=== PATIENT | female | born 1955 | race Caucasian/White ===

== ENCOUNTER 2019-04-23 13:09 | Emergency (ER) | payer OTHER ==
[2019-04-23 13:32] VITALS: BMI 21.5
[2019-04-23] MEDS ORDERED: SODIUM CHLORIDE 1,000 ML IV STA ×2 (13:38→16:29)
[2019-04-23] MEDS ORDERED: ACETAMINOPHEN 1000 MG/100 ML VIAL (NON FORMULARY) IVPB ONE (13:38)
--- NOTE | 2019-04-23 13:50 | PDOC ---
History of Present Illness - General Chief Complaint: Nausea/Vomiting Stated Complaint: nausea,vom,fever Time Seen by Provider: 04/23/19 13:11 History Source: Patient Exam Limitations: No Limitations - History of Present Illness Initial Comments: 04/23/19 13:48 63y F with no significant PMH presenting with fever, n/v today along with chronic cough and cold like symptoms. The cold like symptoms and cough have been going on x10m and patient has been seeing an reconditioning associate for it. She was recently diagnosed with UTI last week and placed on Macrobid. Endorses non productive cough x10m, chest heaviness x10m, body aches, joint pains, headache, n/v, neck pain. Also endorses a few pounds of unintentional weight loss since the summer. Denies abdominal pain, diarrhea, urinary symptoms, photophobia, sick contacts, recent travel. PMD: [place] PMH: none PSH: none Meds: none Allergies: PCN Social: denies Past History - Past Medical History Allergies/Adverse Reactions: Allergies Allergy/AdvReac Type Severity Reaction Status Date / Time Penicillins AdvReac Mild Verified 09/01/11 20:41 ENVIRONMENTAL Allergy Uncoded 09/01/11 20:41 Home Medications: Ambulatory Orders NK [No Known Home Medication] 04/23/19 COPD: No - Immunization History Td Vaccination: Yes Immunization Up to Date: Yes - Psycho Social/Smoking Cessation Hx Smoking Status: No Smoking History: Never smoked Have you smoked in the past 12 months: No Number of Cigarettes Smoked Daily: 0 Information on smoking cessation initiated: No Hx Alcohol Use: No Drug/Substance Use Hx: No Review of Systems - Review of Systems Constitutional: Yes: Chills, Fever. No: Weakness HEENTM: Yes: Nose Congestion Respiratory: Yes: Cough, Shortness of Breath. No: Productive cough, Hemoptysis Cardiac (ROS): No: Chest Pain (chest heaviness), Palpitations, Syncope ABD/GI: Yes: Nausea, Vomiting. No: Constipated, Diarrhea, Abdominal cramping : No: Burning, Dysuria Musculoskeletal: Yes: Joint Pain, Muscle Pain Integumentary: No: Symptoms Reported Neurological: No: Symptoms reported *Physical Exam - Vital Signs Last Vital Signs Temp Pulse Resp BP Pulse Ox 102.6 F H 117 H 20 138/74 100 04/23/19 13:10 04/23/19 13:10 04/23/19 13:10 04/23/19 13:10 04/23/19 13:10 - Physical Exam General Appearance: Yes: Nourished, Appropriately Dressed. No: Apparent Distress HEENT: positive: EOMI, ANIBAL, Pharynx Normal, Other (clear blister on inside of lower lip). negative: Thrush Neck: positive: Trachea midline, Supple. negative: Lymphadenopathy (R), Lymphadenopathy (L) Respiratory/Chest: positive: Lungs Clear, Normal Breath Sounds. negative: Crackles, Rales, Rhonchi, Stridor, Wheezing, Plerual Rub Cardiovascular: positive: S1, S2, Tachycardia, Other (no friction rub). negative: Edema, JVD, Murmur Vascular Pulses: Dorsalis-Pedis (R): 2+, Doralis-Pedis (L): 2+ Gastrointestinal/Abdominal: positive: Normal Bowel Sounds, Soft. negative: Tender, Guarding, Rebound Musculoskeletal: positive: Other (negative brudzinsky and kernig sign). negative: CVA Tenderness, Muscle Spasm, Vertebral Tenderness Extremity: positive: Normal Capillary Refill. negative: Pedal Edema, Swelling, Calf Tenderness Integumentary: positive: Normal Color, Dry, Warm. negative: Rash, Ecchymosis Neurologic: positive: application project leader II-XII NML intact, Fully Oriented, Alert, Normal Mood/ Affect, Normal Response, Motor Strength 11/17 ED Treatment Course - LABORATORY CBC & Chemistry Diagram: 04/23/19 14:03 04/23/19 14:03 - RADIOLOGY Radiology Studies Ordered: Category Date Time Status CHEST X-RAY PORTABLE* [RAD] Stat Radiology 04/23/19 13:36 Ordered Medical Decision Making - Medical Decision Making 04/23/19 14:04 63y F with no significant PMH presenting to ED with complaints of fevers, body aches, and chronic cough and cold like symptoms. ddx includes but not limited to sepsis (pna, uti), influenza, malignancy, vasculitis, viral illness, TB, carditis, toxidrome, meningitis low suspicion for meningitis. ordered sepsis w/u -ivf, ofirmev, zofran. bedside US-cardiac: no structural abnormalities, no pericardial effusion 04/23/19 15:49 labs significant for leukocytosis 13. all other labs wnl. flu negative ua pending. cxr: no infiltrates or consolidations. ekg: sinus tachycardia at 113bpm with nonspecific st abnormalities; diffuse std in all leads, stephanie in v1 <1mm. normal intervals -pt having chest heaviness for 10 months, no acute chest pain. trop negative. 04/23/19 16:44 pt eating without vomiting. still febrile, Toradol given. Stil tachycardic; will give another bolus of NS. rpt trop and ekg rpt ekg still shows non specific ST abnormalities; depressions in all leads with slight elevation in V1. <1mm). Will call PMD. ; office will fax over ekg done in 2018 and recent chart. UA still pending 04/23/19 17:08 EKG done in 2018 faxed over; similar findings on prior ekg as compared to today. pt being seen for chronic sinusitis per last office visit note02/07/2019. pending UA. 04/23/19 18:24 UA negative for infection. BP listed at 95/50s with 94% O2 temp 99.3, Reexamined pt: bp 102/56, O2 96-97% maintaining saturations at 96% even while ambulating. Is not tachypneic. Feels better, will DC home. Likely viral illness. Given return precautions and dc instructions. Discharge - Discharge Information Problems reviewed: Yes Clinical Impression/Diagnosis: Viral infection Condition: Good - Admission No - Follow up/Referral Referrals: Rock Red MD [Staff Physician] - Pedro Payton MD [Staff Physician] - Ozzie Jeronimo MD, MD [Staff Physician] - Zach Calles MD [Staff Physician] - - Patient Discharge Instructions Patient Printed Discharge Instructions: DI for Viral Upper Respiratory Infection -- Adult Additional Instructions: You were seen in the emergency room today for fever and body aches. The blood work showed a high white count indicative of infection and the rest of your blood work is normal. You likely had a viral illness. The EKG has not changed from the EKG done 1 year ago at your doctor's office. Please keep yourself well hydrated! Drink plenty of fluids (water, soups, Gatorade) and make sure you are eating. I recommend using a nasal spray if you have post nasal drip and suggest getting a humidifier. This can help with the cough. Please remember to follow up with your primary care doctor within 2-3 days. You can take ibuprofen every 6 hours and Tylenol every 4 hours as needed for pain/ fever. Come back to the emergency room if you have worsening fever, worsening cough, shortness of breath, worsening headache, neck stiffness, you are unable to eat, you have chest pain, or if any new or concerning symptom develops. Below are some referrals to pulmonologists; let them know you were seen in the emergency room Thank you - Post Discharge Activity
[2019-04-23] MEDS ORDERED: ACETAMINOPHEN INJECTION 100 ML IVPB ONE (14:14)
[2019-04-23 14:59] LABS: BASO % 0.1 % (0-2.0); EOS % 2.4 % (0-4.5); HEMATOCRIT 40.6 % (32.4-45.2); HEMOGLOBIN 13.6 GM/dl (10.7-15.3); LYMPH % 3.7 % (8-40); MCH 28.6 pg (25.7-33.7); MCHC 33.4 g/dl (32.0-36.0); MEAN CELL VOLUME 85.6 fl (80-96); MEAN PLT VOLUME 8.5 fl (7.5-11.1); MONO % 6.3 % (3.8-10.2); NEUT % 87.5 % (42.8-82.8); PLATELET COUNT 238 K/MM3 (134-434); RBC 4.74 M/mm3 (3.60-5.2); WHITE BLOOD COUNT 13.3 K/mm3 (4.0-10.8)
[2019-04-23 15:00] LABS: ALBUMIN 4.2 g/dl (3.4-5.0); BILIRUBIN,TOTAL 0.7 mg/dl (0.2-1); CALCIUM 9.4 mg/dl (8.5-10); CREATININE 0.6 mg/dl (0.55-1.3); TOT PROT 7.2 g/dl (6.4-8.2)
[2019-04-23 15:03] LABS: INR 1.3 (0.82-1.09); PROTHROMBIN TIME (PATIENT) 14.5 SEC (10.2-13.0)
[2019-04-23] MEDS ORDERED: KETOROLAC TROMETHAMINE 15 MG/ML VIAL IVPUSH ONE (15:26)
[2019-04-23] MEDS ORDERED: KETOROLAC TROMETHAMINE 30 MG/1 ML VIAL ONE (15:26)
--- NOTE | 2019-04-23 15:28 | PDOC ---
Attending Attestation - Resident Resident Name: Cecily Ariza - ED Attending Attestation I have performed the following: I have examined & evaluated the patient, The case was reviewed & discussed with the resident, I agree w/resident's findings & plan, Exceptions are as noted - HPI HPI: 04/23/19 15:28 63yo F with no significant PMH presents emergency department with fever, nausea and one episode of vomiting 3 hours prior to arrival to the emergency department. Patient reports she was feeling queasy, attempted to drink water but then proceeded to have one episode of nonbloody nonbilious emesis. Since then she has developed a fever, body aches, joint pains, gradual onset global headache and diffuse body pain. She reports multiple sick contacts, as she takes care of multiple grandchildren. She did not get her flu shot yet this year. She reports diagnosis of a UTI last week, and recently completed a course of Macrobid with resolution of the UTI symptoms. For 10 months she is also had a nonproductive cough for which she has seen an laminator, and has been referred to a marketing administrative assistant as well. Denies any smoking or drug use. Denies any CP/SOB, abdominal pain, diarrhea, focal weakness or numbness, dizziness, urinary symptoms, visual symptoms, recent travel. - Physicial Exam PE: 04/23/19 15:27 GENERAL: Awake, alert, and fully oriented, in no acute distress. Non toxic. Feels warm. EYES: PERRLA, EOMI, sclera anicteric, conjunctiva clear ENT: Auricles normal inspection, hearing grossly normal, nares patent, oropharynx clear without exudates. Dry MM NECK: Normal ROM, supple, no lymphadenopathy, JVD, or masses LUNGS: Breath sounds equal, clear to auscultation bilaterally. No wheezes, and no crackles HEART: Regular rate and rhythm, normal S1 and S2, no murmurs, rubs or gallops ABDOMEN: Soft, nontender, normoactive bowel sounds. No guarding, no rebound. No masses EXTREMITIES: Normal range of motion, no edema. No clubbing or cyanosis. No cords, erythema, or tenderness NEUROLOGICAL: Normal speech, cranial nerves intact, 5/5 strength in all 4 extremities, normal sensation to light touch in all 4 extremities, normal cerebellar exam, normal gait, normal reflexes and tone SKIN: Warm, Dry, normal turgor, no rashes or lesions noted. - Medical Decision Making 04/23/19 15:59 63yo F presents to the ED with fever, chills, vomiting, myalgias, arthralgias concerning for viral syndrome, possible influenza Pt febrile and tachycardic here, BP wnl Plan for sepsis w/u, hydration, antipyretics, reassess Low likelihood meningitis as neck supple, no evidence of meningismus on exam. EKG with diffuse mild ST depressions, will rpt 04/23/19 18:00 EKG stable on rpt Able to obtain EKG from PMD from 05/17/18 which shows diffuse mild ST depressions with sub 1mm stephanie in avr and v1 This is reassuring that these are not new changes Labs with leukocytosis to 13, otherwise wnl CXR clear Pt feeling much better after 2 L Fever came down, tachycardia resolved While sleeping, bp 95/53 On rpt while awake, BP 107/68 Pt feels well, ambulating in ED. Ambulatory sat >97% Pt lives with sister, return precautions discussed She will f/u with PMD within 2-3 days I discussed the physical exam findings, ancillary test results and final diagnoses with the patient. I answered all of the patient's questions. The patient was satisfied with the care received and felt comfortable with the discharge plan and treatment plan. The patient will call their primary care physician within 24 hours to arrange follow-up and will return to the Emergency Department with any new, persistent or worsening symptoms. Heart Score/ECG Review #1 04/23/19 18:51Twelve-lead EKG was performed and reviewed by me. Sinus tachycardia, rate 113. Normal axis and intervals. Diffuse mild ST depressions in 1, 2, 3, aVF and V4 to V6 but submillimeter elevation in aVR and V1. #2 04/23/19 18:54 Twelve-lead EKG was performed and reviewed by me. Sinus tachycardia, rate 102. Normal axis and intervals. Again diffuse mild ST depressions with submillimeter ST elevations in V1 and aVR. When compared to EKG from 1419 done earlier today, no significant change.
[2019-04-23 17:47] VITALS: PULSE 97; TEMP 99.3
[2019-04-23 18:01] VITALS: BP 95/53
--- NOTE | 2019-04-24 12:21 | EKG ---
Test Reason : Blood Pressure : / mmHG Vent. Rate : 113 BPM Atrial Rate : 113 BPM P-R Int : 158 ms QRS Dur : 084 ms QT Int : 328 ms P-R-T Axes : 064 035 048 degrees QTc Int : 449 ms SINUS TACHYCARDIA POSSIBLE LEFT ATRIAL ENLARGEMENT NONSPECIFIC ST ABNORMALITY ABNORMAL ECG NO PREVIOUS ECGS AVAILABLE Confirmed by ERIK HOPE, GABRIELE ([id number]) on 04/24/2019 12:21:17 PM Referred By: AILYN HYMAN Confirmed By:GABRIELE VALENCIA MD
--- NOTE | 2019-04-24 12:21 | EKG ---
Test Reason : Blood Pressure : / mmHG Vent. Rate : 102 BPM Atrial Rate : 102 BPM P-R Int : 156 ms QRS Dur : 086 ms QT Int : 356 ms P-R-T Axes : 064 025 052 degrees QTc Int : 463 ms SINUS TACHYCARDIA NONSPECIFIC ST AND T WAVE ABNORMALITY ABNORMAL ECG WHEN COMPARED WITH ECG OF 23-APR-2019 14:19, NONSPECIFIC T WAVE ABNORMALITY NOW EVIDENT IN ANTERIOR LEADS Confirmed by ERIK HOPE, GABRIELE ([id number]) on 04/24/2019 12:21:20 PM Referred By: MD HYMAN Confirmed By:GABRIELE VALENCIA MD
== END 2019-04-23 18:37 | disposition home or self-care (01) ==
LOC: FER 13:09
PROC: 3E033NZ Introduction of Analgesics, Hypnotics, Sedatives into Peripheral Vein, Percutaneous Approach (ICD-10-PCS; principal; 2019-04-23)
PROC: 3E0333Z Introduction of Anti-inflammatory into Peripheral Vein, Percutaneous Approach (ICD-10-PCS; 2019-04-23)
PROC: 3E0337Z Introduction of Electrolytic and Water Balance Substance into Peripheral Vein, Percutaneous Approach (ICD-10-PCS; 2019-04-23)
DX: B34.9 Viral infection, unspecified (principal); Z88.0 Allergy status to penicillin; Z91.048 Other nonmedicinal substance allergy status
CPT/HCPCS: 36415; 71045-TC-FY; 80053; 81003; 83605; 83690; 84484; 85025; 85610; 85730; 87040; 87086; 87804; 93005; 96361; 96374; 96375; 99284-25; J0131; J7030

== ENCOUNTER 2023-10-28 07:10 | Emergency (ER) | payer OTHER ==
[2023-10-28 07:20] VITALS: BP 152/71; PULSE 77; RESP 20; TEMP 97.2; BMI 22.4
[2023-10-28] MEDS ORDERED: FAMOTIDINE 20 MG TABLET ONE (07:47)
[2023-10-28] MEDS ORDERED: diphenhydrAMINE HCL 50 MG CAPSULE ONE (07:47)
[2023-10-28] MEDS ORDERED: predniSONE 20 MG TABLET (UD) ONE (07:47)
[2023-10-28] MEDS: diphenhydrAMINE HCL 25 MG CAPSULE (FP) PO ONE (07:49)
[2023-10-28] MEDS: predniSONE 20 MG TABLET (UD) PO ONE (07:49)
[2023-10-28] MEDS: FAMOTIDINE 20 MG TABLET PO ONE (07:49)
== END 2023-10-28 08:14 | disposition home or self-care (01) ==
LOC: FER 07:10
DX: L50.9 Urticaria, unspecified (principal); R20.2 Paresthesia of skin; T78.40XA Allergy, unspecified, initial encounter
CPT/HCPCS: 99283-25